=== PATIENT | female | born 1980 | race Caucasian/White ===

== ENCOUNTER 2016-10-25 20:55 | Inpatient (IN) | payer BC ==
[2016-10-25] MEDS ORDERED: Ondansetron INJ* 2 MG/ML VIAL IV ONE (21:43)
[2016-10-25 22:28] LABS: Hematocrit 40 % (35-47); Hemoglobin 13.9 g/dl (12.0-16.0); Mean Corpuscular HGB Conc 35 g/dl (31-36); Mean Corpuscular Hemoglobin 33 pg (27-31); Mean Corpuscular Volume 94 fL (80-97); Mean Platelet Volume 10 um3 (7.4-10.4); Red Blood Count 4.25 10^6/ul (4.0-5.4); Red Cell Distribution Width 13 % (10.5-15); White Blood Count 16.3 10^3/ul (3.5-10.8)
[2016-10-25] MEDS ORDERED: OBEPIDURAL* 250 ML ONE (22:45)
[2016-10-25] MEDS ORDERED: Oxytocin in LR* 20 UNITS/1,000 ML BAG IVPB SCH (23:45)
[2016-10-26] MEDS ORDERED: Phenylephrine IV* 40 MCG/ML 10 ML SYRINGE IV PUSH PRN ×2 (01:07)
[2016-10-26] MEDS ORDERED: Sodium Citrate/Citric Acid* 15 ML UDC PO PRN (01:07)
[2016-10-26] MEDS ORDERED: EPHEDrine (Pressors)* 50 MG/ML VIAL IV PUSH PRN (01:07)
[2016-10-26] MEDS ORDERED: Famotidine TAB* 20 MG PO PRN (01:07)
[2016-10-26] MEDS ORDERED: OBEPIDURAL* 250 ML EPIDURAL SCH (02:00)
[2016-10-26] MEDS ORDERED: fentaNYL* 50 MCG/ML 2 ML VIAL (100 MCG VIAL) ONE (08:30)
[2016-10-26] MEDS ORDERED: Dibucaine 1% 28.35 GM TUBE PR PRN (16:45)
[2016-10-26] MEDS ORDERED: Acetaminophen TAB* 325 MG PO PRN (16:45)
[2016-10-26] MEDS ORDERED: Zolpidem TAB* 5 MG PO PRN (16:45)
[2016-10-26] MEDS ORDERED: Witch Hazel PAD* JAR TOPICAL PRN (16:45)
[2016-10-26] MEDS ORDERED: Glycerin ADULT SUPP PR PRN (16:45)
[2016-10-26] MEDS ORDERED: oxyCODONE/Acetamin 5/325 MG* TAB PO PRN (16:49)
[2016-10-26] MEDS ORDERED: Misoprostol TAB* 200 MCG PR ONE (16:50)
[2016-10-26] MEDS ORDERED: Misoprostol TAB* 200 MCG ONE (16:55)
[2016-10-26] MEDS ORDERED: Oxytocin in LR* 20 UNITS/1,000 ML BAG IVPB SCH (17:00)
[2016-10-26] MEDS: Ibuprofen TAB* 600 MG PO PRN (18:19)
[2016-10-26] MEDS: Simethicone CHEW TAB* 80 MG PO SCH ×2 (20:48→21:45)
[2016-10-26] MEDS: Docusate CAP* 100 MG PO SCH (21:42)
[2016-10-27] MEDS: Ibuprofen TAB* 600 MG PO PRN ×4 (00:20→21:37)
[2016-10-27 07:04] LABS: Hematocrit 35 % (35-47); Hemoglobin 11.9 g/dl (12.0-16.0); Mean Corpuscular HGB Conc 34 g/dl (31-36); Mean Corpuscular Hemoglobin 33 pg (27-31); Mean Corpuscular Volume 97 fL (80-97); Mean Platelet Volume 10 um3 (7.4-10.4); Red Blood Count 3.65 10^6/ul (4.0-5.4); Red Cell Distribution Width 14 % (10.5-15); White Blood Count 15.7 10^3/ul (3.5-10.8)
[2016-10-27] MEDS: Docusate CAP* 100 MG PO SCH ×3 (08:52→20:30)
[2016-10-27] MEDS ORDERED: Measles, Mumps,Rubella VACC* 0.5 ML/VIAL SUBCUT ONE (09:00)
[2016-10-27] MEDS ORDERED: Tetan/Diph/Pertus SYR(Tdap)* 0.5 ML SYR(BOOSTRIX) use SYR IM ONE (09:00)
[2016-10-27] MEDS ORDERED: Ferrous Gluconate TAB* 324 MG TAB PO SCH (09:00)
[2016-10-28] MEDS: Ibuprofen TAB* 600 MG PO PRN (03:58)
[2016-10-28] MEDS: Docusate CAP* 100 MG PO SCH (08:35)
--- NOTE | 2016-10-28 09:00 | PTEDU ---
Patient Name: FAN HAGEN FAN HAGEN selected video: Never Ever Shake a Baby to view on 10/28/2016 at 8:58:41 AM from [facility] [id number]
[2016-10-28 10:08] VITALS: BP 127/77
== END 2016-10-28 13:26 | disposition home or self-care (01) | DRG 560 ==
LOC: MCHOBOUT 20:55 → MCHOB 21:40
PROVIDERS: ADMIT Midwife; ATTEND Obstetrics & Gynecology
PROC: 10D07Z6 Extraction of Products of Conception, Vacuum, Via Natural or Artificial Opening (ICD-10-PCS; principal; 2016-10-26)
PROC: 0W8NXZZ Division of Female Perineum, External Approach (ICD-10-PCS; 2016-10-26)
DX: O48.0 Post-term pregnancy (principal); Z88.2 Allergy status to sulfonamides; Z3A.41 41 weeks gestation of pregnancy; Z37.0 Single live birth; Z91.030 Bee allergy status; Z91.040 Latex allergy status
CPT/HCPCS: 36415; 85025; 86850; 86900; 86901; 90707; 90715; A9270-GY; J2405; J3010

== ENCOUNTER 2019-06-16 23:11 | Inpatient (IN) | payer BC ==
[2019-06-16] MEDS ORDERED: Lactated Ringers 1000 ML Bag* 1,000 ML IV ONE (23:29)
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
[2019-06-16 23:44] LABS: ABS Basophils 0.1 10^3/ul (0-0.2); ABS Lymphocytes 1.3 10^3/ul (1.0-4.8); ABS Monocytes 0.7 10^3/ul (0-0.8); ABS Neutrophils 15.4 10^3/ul (1.5-7.7); Eosinophil % 0.2 %; Hematocrit 39 % (35-47); Hemoglobin 13.4 g/dL (12.0-16.0); Lymphocyte % 7.2 %; Mean Corpuscular HGB Conc 35 g/dL (31-36); Mean Corpuscular Hemoglobin 33 pg (27-31); Mean Corpuscular Volume 95 fL (80-97); Mean Platelet Volume 8.8 fL (7.4-10.4); Platelet Count 122 10^3/uL (150-450); Red Blood Count 4.08 10^6 /uL (3.70-4.87); Red Cell Distribution Width 14 % (10-15); White Blood Count 17.5 10^3/uL (3.5-10.8)
[2019-06-16] MEDS ORDERED: OBEPIDURAL* 250 ML EPIDURAL ONE (23:48)
[2019-06-17] MEDS ORDERED: fentaNYL* 50 MCG/ML 2 ML VIAL (100 MCG VIAL) ONE (00:30)
[2019-06-17] MEDS ORDERED: Ropivacaine (OR use only) 2 MG/ML 10 ML ONE (01:01)
[2019-06-17] MEDS ORDERED: Phenylephrine 40 MCG/ML SYRINGE IV PUSH PRN ×2 (01:16)
[2019-06-17] MEDS ORDERED: Lactated Ringers 1000 ML Bag* 500 ML IV PRN ×2 (01:16)
[2019-06-17] MEDS ORDERED: Famotidine TAB* 20 MG PO PRN (01:16)
[2019-06-17] MEDS ORDERED: Sodium Citrate/Citric Acid* 15 ML UDC PO PRN (01:16)
[2019-06-17] MEDS ORDERED: Lactated Ringers 1000 ML Bag* 1,000 ML IV ONE (01:16)
[2019-06-17] MEDS: Lactated Ringers 1000 ML Bag* 1,000 ML IV SCH ×2 (01:30→06:52)
--- NOTE | 2019-06-17 01:34 | PN ---
Progress Note - Progress Note Date of Service: 06/17/19 Note: S: Pt comfortable s/p CEI placement. O: VSS, afebrile FHT 145bpm. Moderate variability. Isolated variable decel when supine for Tucker catheter placement, recovered UCs q 3-4 min VE 5cm/90%/vtx -1 A: IUP at 41-3/7 in labor Cat II FHT - doubt metabolic acidemia P: Enc rest. Close monitoring of maternal/ status
[2019-06-17] MEDS ORDERED: OBEPIDURAL* 250 ML EPIDURAL SCH (02:00)
[2019-06-17 04:47] LABS: Urine Benzodiazepine Screen None Detected (None Detect); Urine Opiates Screen None Detected (None Detect)
--- NOTE | 2019-06-17 04:56 | PN ---
Progress Note - Progress Note Date of Service: 06/17/19 Note: S: Pt resting comfortably in bed O: BP 91/50 HR 73 T 98.7 FHT 140bpm. Moderate variability. No decels UCs q 4-5 VE 6-7cm/100%/vtx -1 A: IUP at 41-3/7 in labor No evidence of metabolic acidemia P: Enc rest. Close monitoring of maternal/ status
--- NOTE | 2019-06-17 07:33 | PN ---
Progress Note - Progress Note Date of Service: 06/17/19 Note: S: Pt resting comfortably in bed. FOB trying to get their daughter to day care so he can join her. Hoping to wait until he arrives for delivery. O: BP 109/68 HR 81 T 100.1 FHT 135bpm. Moderate variability. +Accels. No decels UCs q 4-5 VE 7cm/100%/vtx 0, leaking clear fluid A: IUP at 41-3/7 No evidence of metabolic acidemia Inadequate UC pattern P: Counseled for trial low dose pitocin in presence of little cervical change. Pt agrees at 0800 hoping FOB can be here as above.
[2019-06-17] MEDS ORDERED: Oxytocin in LR* 20 UNITS/1,000 ML BAG IVPB SCH ×2 (08:00→13:00)
[2019-06-17] MEDS ORDERED: Acetaminophen TAB* 325 MG PO PRN (12:30)
[2019-06-17] MEDS ORDERED: Witch Hazel PAD* JAR TOPICAL PRN (12:30)
[2019-06-17] MEDS ORDERED: Glycerin ADULT SUPP PR PRN (12:30)
[2019-06-17] MEDS ORDERED: Dibucaine 1% 28.35 GM TUBE PR PRN (12:30)
[2019-06-17] MEDS ORDERED: ceFAZolin VIAL(*) 2 GM in NS 0.9% 100 ML* 100 ML IVPB ONE (12:31)
[2019-06-17] MEDS ORDERED: Lidocaine 1% INJ* 10 MG/ML 30 ML SDV ONE (12:45)
[2019-06-17] MEDS ORDERED: Lactated Ringers 1000 ML Bag* 1,000 ML IV SCH (13:00)
[2019-06-17] MEDS ORDERED: Simethicone TAB* 80 MG TAB.CHEW PO SCH (13:00)
[2019-06-17] MEDS ORDERED: ceFAZolin* 2 GM* ONE DOSE (Duplex) IVPB (13:30)
[2019-06-17] MEDS: Docusate CAP* 100 MG PO SCH ×2 (15:44→19:43)
[2019-06-17] MEDS: Ibuprofen TAB* 600 MG PO SCH ×2 (15:47→19:43)
--- NOTE | 2019-06-17 16:12 | PROCNOTE ---
[facility] OB: Delivery Note - Delivery A Date of : 06/17/19 Time of : 11:36 [place] Sex: Female Weight at : 7 lb 5 oz Score 1 Minute: 8 Score 5 Minutes: 9 Gestational Age in Weeks and Days at Delivery: 41 Weeks and 3 Days Delivery Method: Spontaneous Vaginal Labor: Spontaneous Did Patient attempt ?: N/A, No Previous Amniotic Fluid: Clear Estimated Blood Loss: 450 Anesthesia/Analgesia: CEI for Labor Delivered By: Raegan Palacios Nursery Level of Nursery: Regular/Bedside - Perineum Perineal Injury: Perineal Laceration, 1st Degree Perineal Injury Comment: up to bathroom, self care taught. Perineal Repair: By Delivering Practioner - Events Delivery Events of Note: Pitocin During Labor, Supplemental O2 to Mother, Maternal Temperature during Labor, Retained Placenta Delivery Events of Note Comment: placenta manually removed by MD. maternal temp pre delivery 100.5, post delivery 101.9, nuchal cord x1 looped over, category 2 tracing, maternal o2 in labor. - Additional Delivery Notes Additional Delivery Notes: Pt admitted to L & D at 4 cms. SROM to clear fluid at 0945. Pt c/o rectal pressure and urge to push at 1100. Category II tracing in labor. O2 administered , frequent position changes. Maternal temp just prior to pushing 100.5. Cephalic delivery at 1136, nuchal cord x 1, and terminal meconium. 3v cord clamped x 2, cut on maternal abdomen by LM. Spontaneous cry with dry & stimulate. Pitocin initiated and gentle cord traction for active management of third stage. MD (in house) notified after placenta failed to deliver [address] Hopkins to bedside for manual removal of placenta with CEI. Placenta split in two, but full placenta accounted for, 3vc. Fundus firm to massage. Ancef, 2gm initiated. Perineum and vagina inspected - first degree perineal laceration noted. Repaired in the usual fashion under 1% lidocaine with CEI infusing. Normal anatomy restored. EBL 450mL. Mom and baby stable at time of note. Baby attempting to breastfeed.
--- NOTE | 2019-06-17 16:25 | PN ---
Progress Note - Progress Note Date of Service: 06/17/19 Note: Alerted by RN of temp hovering at 100 to 100.5 following delivery Pt's HR on admission was 87, now 103. Vital signs otherwise normal. Pt feeling well. Normal appetite. Following manual removal of placenta - Ancef, 2GM given IVPB. Consult with MD DIANA. Monitor for now. If temperature continues to rise, will consider amp/gent.
[2019-06-18] MEDS: Ibuprofen TAB* 600 MG PO SCH ×4 (04:33→21:40)
[2019-06-18 07:12] LABS: ABS Eosinophils 0.1 10^3/ul (0-0.6); ABS Lymphocytes 1.8 10^3/ul (1.0-4.8); ABS Monocytes 0.6 10^3/ul (0-0.8); ABS Neutrophils 12.1 10^3/ul (1.5-7.7); Eosinophil % 0.5 %; Hematocrit 33 % (35-47); Lymphocyte % 12.6 %; Mean Corpuscular HGB Conc 34 g/dL (31-36); Mean Corpuscular Hemoglobin 33 pg (27-31); Mean Corpuscular Volume 96 fL (80-97); Platelet Count 107 10^3/uL (150-450); Red Blood Count 3.38 10^6 /uL (3.70-4.87); Red Cell Distribution Width 14 % (10-15); White Blood Count 14.6 10^3/uL (3.5-10.8)
[2019-06-18] MEDS: Docusate CAP* 100 MG PO SCH ×3 (08:15→20:33)
[2019-06-18] MEDS ORDERED: Ferrous Gluconate TAB* 324 MG TAB PO SCH (09:00)
[2019-06-19] MEDS: Docusate CAP* 100 MG PO SCH ×2 (07:57→14:27)
[2019-06-19] MEDS: Ibuprofen TAB* 600 MG PO SCH ×2 (07:59→14:35)
[2019-06-19 08:00] VITALS: BP 105/64
== END 2019-06-19 16:37 | disposition home or self-care (01) | DRG 541 ==
LOC: MCHOBOUT 23:11 → MCHOB 23:17
PROVIDERS: ADMIT Midwife; ATTEND Advanced Practice Midwife
PROC: 10E0XZZ Delivery of Products of Conception, External Approach (ICD-10-PCS; principal; 2019-06-17)
PROC: 10D17Z9 Manual Extraction of Products of Conception, Retained, Via Natural or Artificial Opening (ICD-10-PCS; 2019-06-17)
DX: O48.0 Post-term pregnancy (principal); O75.2 Pyrexia during labor, not elsewhere classified; Z37.0 Single live birth; O99.12 Other diseases of the blood and blood-forming organs and certain disorders involving the immune mechanism complicating childbirth; D69.3 Immune thrombocytopenic purpura; O72.2 Delayed and secondary postpartum hemorrhage; O76 Abnormality in fetal heart rate and rhythm complicating labor and delivery; O70.0 First degree perineal laceration during delivery; O69.81X0 Labor and delivery complicated by cord around neck, without compression, not applicable or unspecified; O77.0 Labor and delivery complicated by meconium in amniotic fluid; M54.9 Dorsalgia, unspecified; Z3A.41 41 weeks gestation of pregnancy
CPT/HCPCS: 36415; 80307; 85025; 86850; 86900; 86901; A9270-GY; G0480; J0690; J2795; J3010